=== PATIENT | female | born 1945 | race Caucasian/White ===

== ENCOUNTER 2019-11-11 02:04 | Inpatient (IN) ==
[2019-11-11] MEDS ORDERED: Nitroglycerin 0.4 MG TAB.SUBL SL PRN (02:22)
[2019-11-11] MEDS ORDERED: *HR* FentaNYL (PF) 100 MCG/2 ML VIAL IVP ONE (02:23)
[2019-11-11] MEDS ORDERED: *HR* Heparin 5,000 UNIT/ML VIAL IVP PRN ×2 (02:51)
[2019-11-11] MEDS ORDERED: *HR* Heparin 5,000 UNIT/ML VIAL IVP ONE (02:51)
[2019-11-11] MEDS ORDERED: *HR* Ticagrelor 90 MG TABLET PO ONE (02:51)
[2019-11-11] MEDS ORDERED: Ondansetron 4 MG/2 ML VIAL IVP ONE ×2 (02:55→02:56)
[2019-11-11] MEDS ORDERED: *HR* Heparin 5,000 UNIT/ML VIAL ONE (02:56)
[2019-11-11] MEDS ORDERED: Ondansetron 4 MG/2 ML VIAL ONE (02:56)
[2019-11-11] MEDS ORDERED: *HR* Ticagrelor 90 MG TABLET ONE (02:56)
[2019-11-11] MEDS ORDERED: 0.9 % Sodium Chloride 1,000 ML ONE (02:59)
[2019-11-11] MEDS ORDERED: Heparin 25,000UNIT/250ML 1/2NS 25,000 UNIT/250 ML IV.SOLN IVC SCH (03:00)
[2019-11-11 03:06] LABS: Basophils % 0.4 %; Eosinophils # 0.1 K/mcL (0.0-0.6); Eosinophils % 1.4 %; Hematocrit 43.9 % (35.3-44.9); Hemoglobin 14.6 g/dL (11.5-15.4); Immature Granulocytes % 0.3 % (0-4); Lymphocytes # 2.3 K/mcL (0.6-4.6); Lymphocytes % 28.5 %; Mean Corpuscular HGB Conc 33.3 g/dL (31.6-35.5); Mean Corpuscular Hemoglobin 31.6 pg (28.0-33.3); Mean Platelet Volume 10.8 fL (9.4-12.4); Monocytes # 0.7 K/mcL (0.0-1.3); Monocytes % 8.8 %; Neutrophils # 4.8 K/mcL (1.6-8.9); Platelet Count 255 K/mcL (140-400); Red Blood Count 4.62 M/mcL (3.82-4.97); Red Cell Distribution Width 12.4 % (11.5-14.5); Segmented Neutrophils % 60.6 %; White Blood Count 7.9 K/mcL (4.3-11.1)
[2019-11-11] MEDS ORDERED: ISOVUE-370 200 ML INFUS..BTL ONE (03:17)
[2019-11-11] MEDS ORDERED: 0.9 % Sodium Chloride 2,000 ML ONE (03:17)
[2019-11-11] MEDS ORDERED: *HR* Heparin 10,000 UNIT/10 ML VIAL ONE (03:17)
[2019-11-11] MEDS ORDERED: Nitroglycerin 1,000 MCG/10 ML VIAL IV ONE (03:17)
[2019-11-11] MEDS ORDERED: Heparin 1,000 UNITS/500 mL 500 ML ONE (03:17)
[2019-11-11] MEDS ORDERED: *HR* Midazolam HCl 2 MG/2 ML VIAL ONE (03:25)
[2019-11-11 03:26] LABS: BUN/Creatinine Ratio 20 (6-26); Blood Urea Nitrogen 14 mg/dL (8-23); Calcium 9.6 mg/dL (8.6-10.3); Carbon Dioxide 23 mEq/L (23-29); Chloride 107 mEq/L (98-107); Glucose 112 mg/dL (70-105); Heparin anti-factor XA UFH < 0.04 IU/mL (0.30-0.70); INR 1.2; Osmolality,Calculated 289 (280-300); Potassium 3.7 mEq/L (3.5-5.1); Prothrombin Time 13.1 Seconds (9.4-12.1); Sodium 139 mEq/L (136-145); eGFR For African Americans > 60 (> 60); eGFR For Non-African Americans > 60 (> 60)
[2019-11-11] MEDS ORDERED: *HR* FentaNYL (PF) 100 MCG/2 ML VIAL ONE (03:26)
[2019-11-11 03:29] LABS: Activated Partial Thrombo Time 32.5 Seconds (26.0-36.0)
[2019-11-11 03:31] LABS: Troponin I 0.77 ng/mL (< 0.04)
[2019-11-11 03:34] LABS: Adenovirus Not Detected (Not Detect); Coronavirus 229E Not Detected (Not Detect); Coronavirus HKU1 Not Detected (Not Detect); Coronavirus NL63 Not Detected (Not Detect); Coronavirus OC43 Not Detected (Not Detect); Human Metapneumovirus Not Detected (Not Detect); Human Rhinovirus/Enterovirus Not Detected (Not Detect); Influenza A Subtype 2009 H1 Not Detected (Not Detect); Influenza B Not Detected (Not Detect); Parainfluenza Virus 1 Not Detected (Not Detect); Parainfluenza Virus 2 Not Detected (Not Detect); Parainfluenza Virus 3 Not Detected (Not Detect); Parainfluenza Virus 4 Not Detected (Not Detect); SARS-CoV-2 Not Detected (Not Detect)
[2019-11-11 03:35] LABS: Bordetella Pertussis Not Detected (Not Detect); Chlamydophila pneumoniae Not Detected (Not Detect); Mycoplasma pneumoniae Not Detected (Not Detect); Respiratory Syncytial Virus Not Detected (Not Detect)
[2019-11-11] MEDS ORDERED: Perflutren Lipid Microsphere 1.3 ML in 0.9 % Sodium Chloride 8.7 ML IVP PRN (04:19)
[2019-11-11 06:32] LABS: Basophils % 0.2 %; Eosinophils # 0.1 K/mcL (0.0-0.6); Eosinophils % 0.4 %; Hematocrit 44.1 % (35.3-44.9); Hemoglobin 14.6 g/dL (11.5-15.4); Immature Granulocytes % 0.3 % (0-4); Lymphocytes # 2.1 K/mcL (0.6-4.6); Lymphocytes % 18.7 %; Mean Corpuscular HGB Conc 33.1 g/dL (31.6-35.5); Mean Corpuscular Hemoglobin 31.8 pg (28.0-33.3); Mean Corpuscular Volume 96.1 fL (83.0-100.0); Mean Platelet Volume 10.9 fL (9.4-12.4); Monocytes # 0.7 K/mcL (0.0-1.3); Monocytes % 5.9 %; Neutrophils # 8.4 K/mcL (1.6-8.9); Platelet Count 243 K/mcL (140-400); Red Blood Count 4.59 M/mcL (3.82-4.97); Red Cell Distribution Width 12.6 % (11.5-14.5); Segmented Neutrophils % 74.5 %; White Blood Count 11.2 K/mcL (4.3-11.1)
[2019-11-11 06:47] LABS: BUN/Creatinine Ratio 18 (6-26); Blood Urea Nitrogen 12 mg/dL (8-23); Calcium 9.8 mg/dL (8.6-10.3); Carbon Dioxide 27 mEq/L (23-29); Chloride 104 mEq/L (98-107); Glucose 135 mg/dL (70-105); Osmolality,Calculated 288 (280-300); Potassium 3.7 mEq/L (3.5-5.1); Sodium 138 mEq/L (136-145); eGFR For African Americans > 60 (> 60); eGFR For Non-African Americans > 60 (> 60)
[2019-11-11] MEDS: Acetaminophen 325 MG TABLET PO PRN ×2 (08:48→20:34)
[2019-11-11] MEDS: Aspirin 81 MG TAB.CHEW PO SCH (08:48)
[2019-11-11 08:52] LABS: Estimated Average Glucose 114 mg/dl
[2019-11-11] MEDS: Heparin 25,000UNIT/250ML 1/2NS 25,000 UNIT/250 ML IV.SOLN IVC SCH (10:27)
[2019-11-11] MEDS: Metoprolol XL (24 HR) Succ 25 MG TAB.ER.24H PO SCH (14:39)
[2019-11-12] MEDS ORDERED: Perflutren Lipid Microsphere 1.3 ML in 0.9 % Sodium Chloride 8.7 ML IVP PRN (08:22)
[2019-11-12] MEDS: Heparin 25,000UNIT/250ML 1/2NS 25,000 UNIT/250 ML IV.SOLN IVC SCH (08:22)
[2019-11-12] MEDS: Metoprolol XL (24 HR) Succ 25 MG TAB.ER.24H PO SCH (08:22)
[2019-11-12] MEDS: Aspirin 81 MG TAB.CHEW PO SCH (08:22)
[2019-11-12] MEDS ORDERED: Acetaminophen 325 MG TABLET PO SCH ×2 (09:00→18:00)
[2019-11-12] MEDS: Isosorbide MONOnitrate (24 HR) 30 MG TAB.ER.24H PO SCH (09:27)
[2019-11-12 11:20] LABS: Basophils % 0.3 %; Eosinophils # 0.2 K/mcL (0.0-0.6); Eosinophils % 1.7 %; Hematocrit 45.4 % (35.3-44.9); Hemoglobin 15.3 g/dL (11.5-15.4); Immature Granulocytes % 0.3 % (0-4); Lymphocytes # 2.9 K/mcL (0.6-4.6); Lymphocytes % 26.6 %; Mean Corpuscular HGB Conc 33.7 g/dL (31.6-35.5); Mean Corpuscular Hemoglobin 32.6 pg (28.0-33.3); Mean Corpuscular Volume 96.6 fL (83.0-100.0); Mean Platelet Volume 11.4 fL (9.4-12.4); Monocytes # 1.1 K/mcL (0.0-1.3); Monocytes % 10.6 %; Neutrophils # 6.5 K/mcL (1.6-8.9); Platelet Count 231 K/mcL (140-400); Red Cell Distribution Width 12.6 % (11.5-14.5); Segmented Neutrophils % 60.5 %; White Blood Count 10.8 K/mcL (4.3-11.1)
[2019-11-12 11:56] LABS: BUN/Creatinine Ratio 17 (6-26); Blood Urea Nitrogen 13 mg/dL (8-23); Calcium 9.5 mg/dL (8.6-10.3); Carbon Dioxide 24 mEq/L (23-29); Chloride 105 mEq/L (98-107); Chol/HDL Ratio 5.4 (0-4.9); Cholesterol 239 mg/dL (< 200); Glucose 144 mg/dL (70-105); HDL Cholesterol 44 mg/dL (40-59); LDL Cholesterol,Calculated 146 mg/dL (< 100); Osmolality,Calculated 293 (280-300); Potassium 3.5 mEq/L (3.5-5.1); Sodium 140 mEq/L (136-145); Triglycerides 245 mg/dL (< 150); eGFR For African Americans > 60 (> 60); eGFR For Non-African Americans > 60 (> 60)
[2019-11-13] MEDS ORDERED: carvediloL 6.25 MG TABLET PO SCH (08:18)
[2019-11-13] MEDS ORDERED: Acetaminophen 325 MG TABLET PO SCH (09:00)
[2019-11-13] MEDS ORDERED: Menthol 9.1 MG LOZENGE PO PRN ×2 (09:42→10:13)
[2019-11-13] MEDS: Aspirin 81 MG TAB.CHEW PO SCH (10:08)
[2019-11-13] MEDS: Isosorbide MONOnitrate (24 HR) 30 MG TAB.ER.24H PO SCH (10:08)
[2019-11-13] MEDS ORDERED: Perflutren Lipid Microsphere 1.3 ML in 0.9 % Sodium Chloride 8.7 ML IVP PRN (10:13)
[2019-11-13] MEDS ORDERED: Nitroglycerin 0.4 MG TAB.SUBL SL PRN (10:13)
[2019-11-13] MEDS: Lactobacillus 1 EACH CAP.SPRINK PO SCH (12:29)
[2019-11-13] MEDS: Multivit/Ca/Min/Fe/FA 1 TAB TABLET PO SCH (12:29)
[2019-11-13] MEDS: Cholecalciferol (D-3) 1,000 UNIT (25MCG) TABLET PO SCH (12:36)
[2019-11-13] MEDS: Heparin 25,000UNIT/250ML 1/2NS 25,000 UNIT/250 ML IV.SOLN IVC SCH ×2 (12:38→21:43)
[2019-11-13] MEDS: Acetaminophen 325 MG TABLET PO SCH ×2 (16:04→20:25)
[2019-11-13] MEDS: carvediloL 6.25 MG TABLET PO SCH (16:05)
[2019-11-13] MEDS: Budesonide/Formoterol 160/4.5 1 PUFF INH IH SCH (20:00)
[2019-11-14 01:15] LABS: Basophils % 0.3 %; Eosinophils # 0.3 K/mcL (0.0-0.6); Eosinophils % 3.1 %; Hematocrit 43.1 % (35.3-44.9); Hemoglobin 14.1 g/dL (11.5-15.4); Immature Granulocytes % 0.2 % (0-4); Lymphocytes # 3.5 K/mcL (0.6-4.6); Lymphocytes % 37.1 %; Mean Corpuscular HGB Conc 32.7 g/dL (31.6-35.5); Mean Corpuscular Hemoglobin 31.5 pg (28.0-33.3); Mean Corpuscular Volume 96.2 fL (83.0-100.0); Mean Platelet Volume 11.3 fL (9.4-12.4); Monocytes # 1.1 K/mcL (0.0-1.3); Monocytes % 11.9 %; Neutrophils # 4.5 K/mcL (1.6-8.9); Platelet Count 214 K/mcL (140-400); Red Blood Count 4.48 M/mcL (3.82-4.97); Red Cell Distribution Width 12.8 % (11.5-14.5); Segmented Neutrophils % 47.4 %; White Blood Count 9.4 K/mcL (4.3-11.1)
[2019-11-14 01:34] LABS: BUN/Creatinine Ratio 25 (6-26); Blood Urea Nitrogen 19 mg/dL (8-23); Calcium 9.6 mg/dL (8.6-10.3); Carbon Dioxide 22 mEq/L (23-29); Chloride 107 mEq/L (98-107); Glucose 121 mg/dL (70-105); Osmolality,Calculated 292 (280-300); Sodium 139 mEq/L (136-145); eGFR For African Americans > 60 (> 60); eGFR For Non-African Americans > 60 (> 60)
[2019-11-14] MEDS: Budesonide/Formoterol 160/4.5 1 PUFF INH IH SCH ×2 (07:40→20:58)
[2019-11-14] MEDS: Heparin 25,000UNIT/250ML 1/2NS 25,000 UNIT/250 ML IV.SOLN IVC SCH (08:06)
[2019-11-14] MEDS: Multivit/Ca/Min/Fe/FA 1 TAB TABLET PO SCH (08:08)
[2019-11-14] MEDS: Cholecalciferol (D-3) 1,000 UNIT (25MCG) TABLET PO SCH (08:08)
[2019-11-14] MEDS: Lactobacillus 1 EACH CAP.SPRINK PO SCH (08:09)
[2019-11-14] MEDS: Acetaminophen 325 MG TABLET PO SCH ×3 (08:09→20:26)
[2019-11-14] MEDS: Isosorbide MONOnitrate (24 HR) 30 MG TAB.ER.24H PO SCH (08:09)
[2019-11-14] MEDS: BuPROPion XL (24 HR) 150 MG TABLET PO SCH (08:09)
[2019-11-14] MEDS: Aspirin 81 MG TAB.CHEW PO SCH (08:09)
[2019-11-14] MEDS: carvediloL 6.25 MG TABLET PO SCH ×2 (08:10→16:46)
[2019-11-15] MEDS: carvediloL 6.25 MG TABLET PO SCH ×2 (07:45→15:13)
[2019-11-15] MEDS: Lactobacillus 1 EACH CAP.SPRINK PO SCH (07:46)
[2019-11-15] MEDS: Acetaminophen 325 MG TABLET PO SCH ×3 (07:46→21:02)
[2019-11-15] MEDS: BuPROPion XL (24 HR) 150 MG TABLET PO SCH (07:46)
[2019-11-15] MEDS: Isosorbide MONOnitrate (24 HR) 30 MG TAB.ER.24H PO SCH (07:46)
[2019-11-15] MEDS: Multivit/Ca/Min/Fe/FA 1 TAB TABLET PO SCH (07:46)
[2019-11-15] MEDS: Aspirin 81 MG TAB.CHEW PO SCH (07:48)
[2019-11-15] MEDS: Heparin 25,000UNIT/250ML 1/2NS 25,000 UNIT/250 ML IV.SOLN IVC SCH (07:48)
[2019-11-15] MEDS: Cholecalciferol (D-3) 1,000 UNIT (25MCG) TABLET PO SCH (07:48)
[2019-11-15] MEDS: Budesonide/Formoterol 160/4.5 1 PUFF INH IH SCH ×2 (10:15→20:19)
[2019-11-15] MEDS ORDERED: Chlorhexidine Rinse 15 ML MOUTHWASH MM SCH (21:00)
[2019-11-16] MEDS: Aspirin 81 MG TAB.CHEW PO SCH (07:15)
[2019-11-16] MEDS: Cholecalciferol (D-3) 1,000 UNIT (25MCG) TABLET PO SCH (07:15)
[2019-11-16] MEDS: Multivit/Ca/Min/Fe/FA 1 TAB TABLET PO SCH (07:15)
[2019-11-16] MEDS: Acetaminophen 325 MG TABLET PO SCH ×3 (07:15→21:28)
[2019-11-16] MEDS: Isosorbide MONOnitrate (24 HR) 30 MG TAB.ER.24H PO SCH (07:15)
[2019-11-16] MEDS: Lactobacillus 1 EACH CAP.SPRINK PO SCH (07:15)
[2019-11-16] MEDS: BuPROPion XL (24 HR) 150 MG TABLET PO SCH (07:15)
[2019-11-16] MEDS: carvediloL 6.25 MG TABLET PO SCH ×2 (07:16→15:09)
[2019-11-16] MEDS: Heparin 25,000UNIT/250ML 1/2NS 25,000 UNIT/250 ML IV.SOLN IVC SCH (07:16)
[2019-11-16] MEDS: Budesonide/Formoterol 160/4.5 1 PUFF INH IH SCH ×2 (07:30→19:59)
[2019-11-16 08:06] LABS: Basophils % 0.4 %; Eosinophils # 0.2 K/mcL (0.0-0.6); Eosinophils % 2.7 %; Hematocrit 43.9 % (35.3-44.9); Hemoglobin 14.3 g/dL (11.5-15.4); Immature Granulocytes % 0.2 % (0-4); Lymphocytes # 3.2 K/mcL (0.6-4.6); Lymphocytes % 38.1 %; Mean Corpuscular HGB Conc 32.6 g/dL (31.6-35.5); Mean Corpuscular Hemoglobin 31.5 pg (28.0-33.3); Mean Corpuscular Volume 96.7 fL (83.0-100.0); Mean Platelet Volume 11.9 fL (9.4-12.4); Monocytes # 0.8 K/mcL (0.0-1.3); Monocytes % 9.7 %; Neutrophils # 4.1 K/mcL (1.6-8.9); Platelet Count 231 K/mcL (140-400); Red Blood Count 4.54 M/mcL (3.82-4.97); Red Cell Distribution Width 12.9 % (11.5-14.5); Segmented Neutrophils % 48.9 %; White Blood Count 8.4 K/mcL (4.3-11.1)
[2019-11-16 08:26] LABS: BUN/Creatinine Ratio 18 (6-26); Blood Urea Nitrogen 12 mg/dL (8-23); Carbon Dioxide 25 mEq/L (23-29); Chloride 106 mEq/L (98-107); Glucose 118 mg/dL (70-105); Osmolality,Calculated 287 (280-300); Potassium 3.7 mEq/L (3.5-5.1); Sodium 138 mEq/L (136-145); eGFR For African Americans > 60 (> 60); eGFR For Non-African Americans > 60 (> 60)
[2019-11-16] MEDS: Chlorhexidine Rinse 15 ML MOUTHWASH MM SCH (21:28)
[2019-11-17 01:25] LABS: Basophils % 0.3 %; Eosinophils # 0.2 K/mcL (0.0-0.6); Eosinophils % 2.2 %; Hematocrit 43.9 % (35.3-44.9); Hemoglobin 14.3 g/dL (11.5-15.4); Immature Granulocytes % 0.3 % (0-4); Lymphocytes # 2.7 K/mcL (0.6-4.6); Lymphocytes % 36.6 %; Mean Corpuscular HGB Conc 32.6 g/dL (31.6-35.5); Mean Corpuscular Hemoglobin 31.8 pg (28.0-33.3); Mean Corpuscular Volume 97.8 fL (83.0-100.0); Monocytes # 0.8 K/mcL (0.0-1.3); Monocytes % 10.7 %; Neutrophils # 3.6 K/mcL (1.6-8.9); Platelet Count 216 K/mcL (140-400); Red Blood Count 4.49 M/mcL (3.82-4.97); Red Cell Distribution Width 12.8 % (11.5-14.5); Segmented Neutrophils % 49.9 %; White Blood Count 7.3 K/mcL (4.3-11.1)
[2019-11-17 01:54] LABS: BUN/Creatinine Ratio 16 (6-26); Blood Urea Nitrogen 13 mg/dL (8-23); Calcium 10.2 mg/dL (8.6-10.3); Carbon Dioxide 22 mEq/L (23-29); Chloride 106 mEq/L (98-107); Glucose 111 mg/dL (70-105); Osmolality,Calculated 289 (280-300); Potassium 4.6 mEq/L (3.5-5.1); Sodium 139 mEq/L (136-145); eGFR For African Americans > 60 (> 60); eGFR For Non-African Americans > 60 (> 60)
[2019-11-17] MEDS ORDERED: Norepinephrine 4 MG in 0.9 % Sodium Chloride 250 ML IVC PRN (02:00)
[2019-11-17] MEDS ORDERED: Dextrose 50 % in Water (Vial) 30 ML, Sodium Bicarbonate 20 MEQ, Lidocaine 1% 5 ML, Insu... TH ONE ×3 (02:00)
[2019-11-17] MEDS ORDERED: Insulin Human Regular 100 UNIT in 0.9 % Sodium Chloride 100 ML IV PRN (02:00)
[2019-11-17] MEDS ORDERED: Heparin 15,000 UNIT in 0.9 % Sodium Chloride 500 ML IV ONE (02:00)
[2019-11-17] MEDS ORDERED: Dextrose 50 % in Water (Vial) 30 ML, Sodium Bicarbonate 20 MEQ, Potassium Chloride 15 M... TH ONE (02:00)
[2019-11-17] MEDS ORDERED: CeFAZolin Syr 2,000MG/20 ML 2,000 MG/20 ML SYRINGE IVPB ONE (07:00)
[2019-11-17] MEDS: Heparin 25,000UNIT/250ML 1/2NS 25,000 UNIT/250 ML IV.SOLN IVC SCH (07:50)
[2019-11-17] MEDS ORDERED: *HR* Midazolam HCl 5 MG/5 ML VIAL IVP ONE (09:03)
[2019-11-17] MEDS ORDERED: *HR* Propofol 200 MG/20 ML VIAL IVP ONE (09:03)
[2019-11-17] MEDS ORDERED: *HR* FentaNYL (PF) 1,000 MCG/20 ML VIAL ONE (09:03)
[2019-11-17] MEDS ORDERED: Tranexamic Acid 1,000 MG/10 ML VIAL ONE (09:05)
[2019-11-17] MEDS ORDERED: Lidocaine 2% Syringe 100 MG/5 ML ONE (09:05)
[2019-11-17] MEDS ORDERED: *HR* Magnesium Sulfate 1 GM/2 ML VIAL ONE (09:06)
[2019-11-17] MEDS ORDERED: Famotidine 20 MG/2 ML VIAL ONE (09:06)
[2019-11-17] MEDS ORDERED: Dexamethasone 4 MG/ML VIAL ONE (09:06)
[2019-11-17] MEDS ORDERED: *HR* Rocuronium Bromide 50 MG/5 ML VIAL ONE ×2 (09:06→13:40)
[2019-11-17] MEDS ORDERED: *HR* PHENYLEPHRINE 1,000 MCG/10 ML SYRINGE IVP ONE (09:06)
[2019-11-17] MEDS: Isosorbide MONOnitrate (24 HR) 30 MG TAB.ER.24H PO SCH (10:04)
[2019-11-17] MEDS: Aspirin 81 MG TAB.CHEW PO SCH (10:04)
[2019-11-17] MEDS: Cholecalciferol (D-3) 1,000 UNIT (25MCG) TABLET PO SCH (10:04)
[2019-11-17] MEDS: Multivit/Ca/Min/Fe/FA 1 TAB TABLET PO SCH (10:04)
[2019-11-17] MEDS: Lactobacillus 1 EACH CAP.SPRINK PO SCH (10:04)
[2019-11-17] MEDS: Acetaminophen 325 MG TABLET PO SCH ×3 (10:04→20:40)
[2019-11-17] MEDS: carvediloL 6.25 MG TABLET PO SCH ×2 (10:05→19:34)
[2019-11-17] MEDS: Chlorhexidine Rinse 15 ML MOUTHWASH MM SCH ×2 (10:05→19:33)
[2019-11-17] MEDS: BuPROPion XL (24 HR) 150 MG TABLET PO SCH (10:05)
[2019-11-17] MEDS: Budesonide/Formoterol 160/4.5 1 PUFF INH IH SCH ×2 (10:13→19:56)
[2019-11-17 13:06] LABS: ABG Base Excess 0 mEq/L (-2 to 3); ABG Chloride 103 mEq/L (98-107); ABG Glucose 100 mg/dL (60-95); ABG HCO3 27 mEq/L (21-27); ABG Ionized Calcium 1.32 mmol/L (1.15-1.35); ABG Oxygen Saturation 100 % (95-98); ABG PCO2 50 mmHg (35-45); ABG PH 7.33 pH Units (7.32-7.45); ABG PO2 223 mmHg (85-104); ABG TCO2 28 mEq/L (20-26)
[2019-11-17] MEDS ORDERED: *HR* Phenylephrine 10 MG/ML VIAL IVC ONE (13:40)
[2019-11-17] MEDS ORDERED: Albumin Human 25% 25 GM/100 ML IV.SOLN IVPB ONE (13:40)
[2019-11-17] MEDS ORDERED: *HR* Magnesium Sulfate 2 GM/50 ML PIGGYBACK IVPB ONE (13:40)
[2019-11-17] MEDS ORDERED: Lidocaine 2% Syringe 100 MG/5 ML IVP ONE (13:40)
[2019-11-17] MEDS ORDERED: Heparin 1,000 UNITS/500 mL IV.SOLN IVC ONE (13:40)
[2019-11-17] MEDS ORDERED: Tranexamic Acid 1,000 MG/10 ML VIAL IR ONE (13:40)
[2019-11-17] MEDS ORDERED: D5% in Water 250 ML IV BAG IV ONE (13:40)
[2019-11-17] MEDS ORDERED: *HR* Heparin 10,000 UNIT/10 ML VIAL IR ONE (13:40)
[2019-11-17] MEDS ORDERED: Mannitol 25% vial 12.5 GM/50 ML VIAL IVPB ONE (13:40)
[2019-11-17] MEDS ORDERED: *HR* FentaNYL (PF) 250 MCG/5 ML VIAL ONE (14:01)
[2019-11-17 14:42] LABS: ABG Base Excess -2 mEq/L (-2 to 3); ABG Chloride 110 mEq/L (98-107); ABG Glucose 102 mg/dL (60-95); ABG HCO3 22 mEq/L (21-27); ABG Ionized Calcium 1.09 mmol/L (1.15-1.35); ABG Oxygen Saturation 100 % (95-98); ABG PCO2 37 mmHg (35-45); ABG PH 7.39 pH Units (7.32-7.45); ABG PO2 185 mmHg (85-104); ABG TCO2 23 mEq/L (20-26)
[2019-11-17 14:54] LABS: ABG Base Excess 0 mEq/L (-2 to 3); ABG Chloride 102 mEq/L (98-107); ABG Glucose 212 mg/dL (60-95); ABG HCO3 24 mEq/L (21-27); ABG Ionized Calcium 1.02 mmol/L (1.15-1.35); ABG Oxygen Saturation 100 % (95-98); ABG PCO2 34 mmHg (35-45); ABG PH 7.45 pH Units (7.32-7.45); ABG PO2 570 mmHg (85-104); ABG TCO2 25 mEq/L (20-26)
[2019-11-17] MEDS ORDERED: Calcium Gluconate 1,000 MG/10 ML VIAL ONE (15:21)
[2019-11-17 15:32] LABS: ABG Base Excess 5 mEq/L (-2 to 3); ABG Chloride 102 mEq/L (98-107); ABG Glucose 106 mg/dL (60-95); ABG HCO3 28 mEq/L (21-27); ABG Ionized Calcium 1.25 mmol/L (1.15-1.35); ABG Oxygen Saturation 100 % (95-98); ABG PCO2 35 mmHg (35-45); ABG PH 7.51 pH Units (7.32-7.45); ABG PO2 526 mmHg (85-104); ABG TCO2 29 mEq/L (20-26)
[2019-11-17] MEDS ORDERED: *HR* Dextrose 50 % in Water (Syg) 50 ML SYRINGE ONE (16:01)
[2019-11-17 16:03] LABS: ABG Base Excess 0 mEq/L (-2 to 3); ABG Chloride 104 mEq/L (98-107); ABG Glucose 55 mg/dL (60-95); ABG HCO3 24 mEq/L (21-27); ABG Ionized Calcium 1.27 mmol/L (1.15-1.35); ABG Oxygen Saturation 100 % (95-98); ABG PCO2 34 mmHg (35-45); ABG PH 7.46 pH Units (7.32-7.45); ABG PO2 266 mmHg (85-104); ABG TCO2 25 mEq/L (20-26)
[2019-11-17] MEDS ORDERED: Insulin Regular, Human 100 UNIT/ML IV PRN (16:28)
[2019-11-17] MEDS ORDERED: *HR* Dextrose 50 % in Water (Vial) 50 ML VIAL IVP PRN (16:28)
[2019-11-17] MEDS ORDERED: Naloxone 0.4 MG/ML INJ IVP PRN (16:28)
[2019-11-17] MEDS ORDERED: Potassium Chloride 40 MEQ/200 ML BAG IVPB PRN (16:28)
[2019-11-17] MEDS ORDERED: Ondansetron 4 MG/2 ML VIAL IVP PRN (16:28)
[2019-11-17 16:53] LABS: ABG Base Excess -1 mEq/L (-2 to 3); ABG HCO3 24 mEq/L (21-27); ABG Oxygen Saturation 89 % (95-98); ABG PCO2 40 mmHg (35-45); ABG PH 7.39 pH Units (7.32-7.45); ABG PO2 57 mmHg (85-104); ABG TCO2 26 mEq/L (20-26); Blood Gas VT 500 cc
[2019-11-17 17:05] LABS: Basophils % 0.2 %; Eosinophils % 0.8 %; Hematocrit 32.9 % (35.3-44.9); Immature Granulocytes % 0.5 % (0-4); Lymphocytes # 1.7 K/mcL (0.6-4.6); Lymphocytes % 9.3 %; Mean Corpuscular Hemoglobin 32.5 pg (28.0-33.3); Mean Corpuscular Volume 95.4 fL (83.0-100.0); Mean Platelet Volume 12.1 fL (9.4-12.4); Monocytes # 1.7 K/mcL (0.0-1.3); Monocytes % 9.3 %; Neutrophils # 14.5 K/mcL (1.6-8.9); Platelet Count 112 K/mcL (140-400); Red Blood Count 3.45 M/mcL (3.82-4.97); Red Cell Distribution Width 12.8 % (11.5-14.5); Segmented Neutrophils % 79.9 %
[2019-11-17 17:09] LABS: Eosinophils # 0.1 K/mcL (0.0-0.6); Hemoglobin 11.2 g/dL (11.5-15.4); White Blood Count 18.1 K/mcL (4.3-11.1)
[2019-11-17 17:15] LABS: INR 1.5; Prothrombin Time 17.5 Seconds (9.4-12.1)
[2019-11-17 17:18] LABS: Activated Partial Thrombo Time 29.7 Seconds (26.0-36.0)
[2019-11-17 17:25] LABS: BUN/Creatinine Ratio 18 (6-26); Blood Urea Nitrogen 12 mg/dL (8-23); Calcium 8.7 mg/dL (8.6-10.3); Carbon Dioxide 25 mEq/L (23-29); Chloride 107 mEq/L (98-107); Glucose 152 mg/dL (70-105); Magnesium 3.4 mg/dL (1.6-2.6); Osmolality,Calculated 289 (280-300); Potassium 3.7 mEq/L (3.5-5.1); Sodium 138 mEq/L (136-145); eGFR For African Americans > 60 (> 60); eGFR For Non-African Americans > 60 (> 60)
[2019-11-17] MEDS: *HR* OxyCODONE/APAP 5/325 TABLET PO PRN ×2 (17:35→23:26)
[2019-11-17] MEDS: 0.9 % Sodium Chloride 1,000 ML IVC SCH (17:35)
[2019-11-17] MEDS: Albumin Human 5% 12.5 GM/250 ML IV.SOLN IVPB PRN ×2 (19:00→19:35)
[2019-11-17] MEDS: Norepinephrine 4 MG/254 ML IV.SOLN IVC SCH (19:33)
[2019-11-17] MEDS: niCARdipine 20 MG/200 ML MLS IVC SCH ×2 (19:33→19:38)
[2019-11-17] MEDS: *HR* FentaNYL (PF) 100 MCG/2 ML VIAL IVP PRN ×3 (19:35→23:53)
[2019-11-17] MEDS: CeFAZolin 2 GM/120 ML BAG IVPB SCH (20:17)
[2019-11-17] MEDS: Insulin Human Regular 100 UNIT in 0.9 % Sodium Chloride 100 ML IVC SCH (20:22)
[2019-11-17 22:10] LABS: ABG Base Excess 2 mEq/L (-2 to 3); ABG HCO3 26 mEq/L (21-27); ABG Oxygen Saturation 93 % (95-98); ABG PCO2 38 mmHg (35-45); ABG PH 7.45 pH Units (7.32-7.45); ABG PO2 64 mmHg (85-104); ABG TCO2 27 mEq/L (20-26); Blood Gas Modality ASSIST CONTROL; Blood Gas VT 500 cc
[2019-11-17 23:43] LABS: ABG Base Excess 0 mEq/L (-2 to 3); ABG HCO3 25 mEq/L (21-27); ABG Oxygen Saturation 95 % (95-98); ABG PCO2 41 mmHg (35-45); ABG PO2 78 mmHg (85-104); ABG TCO2 26 mEq/L (20-26); Blood Gas Modality CPAP/PS
[2019-11-18] MEDS: niCARdipine 20 MG/200 ML MLS IVC SCH ×3 (00:01→19:53)
[2019-11-18] MEDS: *HR* FentaNYL (PF) 100 MCG/2 ML VIAL IVP PRN ×3 (01:03→05:36)
[2019-11-18] MEDS: CeFAZolin 2 GM/120 ML BAG IVPB SCH (04:25)
[2019-11-18] MEDS: *HR* OxyCODONE/APAP 5/325 TABLET PO PRN ×2 (04:25→21:31)
[2019-11-18] MEDS: 0.9 % Sodium Chloride 1,000 ML IVC SCH (04:28)
[2019-11-18 05:41] LABS: Basophils % 0.1 %; Hematocrit 35.3 % (35.3-44.9); Hemoglobin 11.8 g/dL (11.5-15.4); Immature Granulocytes % 0.6 % (0-4); Lymphocytes # 1.5 K/mcL (0.6-4.6); Lymphocytes % 6.7 %; Mean Corpuscular HGB Conc 33.4 g/dL (31.6-35.5); Mean Corpuscular Hemoglobin 32.2 pg (28.0-33.3); Mean Corpuscular Volume 96.2 fL (83.0-100.0); Monocytes # 2.7 K/mcL (0.0-1.3); Platelet Count 147 K/mcL (140-400); Red Blood Count 3.67 M/mcL (3.82-4.97); Segmented Neutrophils % 80.6 %; White Blood Count 22.4 K/mcL (4.3-11.1)
[2019-11-18 05:43] LABS: BUN/Creatinine Ratio 25 (6-26); Blood Urea Nitrogen 16 mg/dL (8-23); Calcium 8.8 mg/dL (8.6-10.3); Carbon Dioxide 24 mEq/L (23-29); Chloride 109 mEq/L (98-107); Glucose 104 mg/dL (70-105); Osmolality,Calculated 291 (280-300); Potassium 4.2 mEq/L (3.5-5.1); Sodium 140 mEq/L (136-145); eGFR For African Americans > 60 (> 60); eGFR For Non-African Americans > 60 (> 60)
[2019-11-18] MEDS: Budesonide/Formoterol 160/4.5 1 PUFF INH IH SCH ×2 (07:31→20:13)
[2019-11-18] MEDS ORDERED: Pantoprazole 40 MG VIAL IVP SCH (09:00)
[2019-11-18] MEDS ORDERED: Furosemide 20 MG/2 ML VIAL IVP ONE (09:16)
[2019-11-18] MEDS ORDERED: *HR* FentaNYL (PF) 100 MCG/2 ML VIAL IVP PRN ×2 (09:22→17:35)
[2019-11-18] MEDS: Chlorhexidine Rinse 15 ML MOUTHWASH MM SCH ×2 (09:45→21:18)
[2019-11-18] MEDS: Aspirin 81 MG TAB.CHEW PO SCH (09:46)
[2019-11-18] MEDS: Cholecalciferol (D-3) 1,000 UNIT (25MCG) TABLET PO SCH (09:46)
[2019-11-18] MEDS: Acetaminophen 325 MG TABLET PO SCH ×3 (09:46→21:15)
[2019-11-18] MEDS: carvediloL 6.25 MG TABLET PO SCH ×2 (09:46→17:35)
[2019-11-18] MEDS: BuPROPion XL (24 HR) 150 MG TABLET PO SCH (09:47)
[2019-11-18] MEDS: Lactobacillus 1 EACH CAP.SPRINK PO SCH (09:47)
[2019-11-18] MEDS: Multivit/Ca/Min/Fe/FA 1 TAB TABLET PO SCH (09:47)
[2019-11-18] MEDS ORDERED: Naloxone 0.4 MG/ML INJ IVP PRN (17:35)
[2019-11-18] MEDS ORDERED: Nitroglycerin 0.4 MG TAB.SUBL SL PRN (17:35)
[2019-11-18] MEDS ORDERED: Dextrose Gel 15 GM/37.5 ML TUBE PO PRN ×2 (17:35)
[2019-11-18] MEDS ORDERED: D5% in Water 1,000 ML IVC PRN (17:35)
[2019-11-18] MEDS ORDERED: *HR* Dextrose 50 % in Water (Vial) 50 ML VIAL IVP PRN (17:35)
[2019-11-18] MEDS: *HR* Heparin 5,000 UNIT/ML VIAL SQ SCH (18:45)
[2019-11-18] MEDS: Insulin LISPRO 300 UNITS/3 ML VIAL SQ SCH ×2 (19:50→20:59)
[2019-11-18] MEDS: Norepinephrine 4 MG/254 ML IV.SOLN IVC SCH (19:52)
[2019-11-18] MEDS: Insulin Human Regular 100 UNIT in 0.9 % Sodium Chloride 100 ML IVC SCH (19:52)
[2019-11-19 03:36] LABS: Basophils % 0.2 %; Hematocrit 31.7 % (35.3-44.9); Hemoglobin 10.3 g/dL (11.5-15.4); Immature Granulocytes % 0.4 % (0-4); Lymphocytes # 2.4 K/mcL (0.6-4.6); Lymphocytes % 12.6 %; Mean Corpuscular HGB Conc 32.5 g/dL (31.6-35.5); Mean Corpuscular Hemoglobin 32.3 pg (28.0-33.3); Mean Corpuscular Volume 99.4 fL (83.0-100.0); Mean Platelet Volume 12.8 fL (9.4-12.4); Monocytes # 2.6 K/mcL (0.0-1.3); Monocytes % 13.7 %; Neutrophils # 14.1 K/mcL (1.6-8.9); Platelet Count 115 K/mcL (140-400); Red Blood Count 3.19 M/mcL (3.82-4.97); Red Cell Distribution Width 13.5 % (11.5-14.5); Segmented Neutrophils % 73.1 %; White Blood Count 19.2 K/mcL (4.3-11.1)
[2019-11-19 03:58] LABS: BUN/Creatinine Ratio 32 (6-26); Blood Urea Nitrogen 23 mg/dL (8-23); Calcium 8.8 mg/dL (8.6-10.3); Carbon Dioxide 24 mEq/L (23-29); Chloride 106 mEq/L (98-107); Glucose 116 mg/dL (70-105); Osmolality,Calculated 291 (280-300); Potassium 3.8 mEq/L (3.5-5.1); Sodium 138 mEq/L (136-145); eGFR For African Americans > 60 (> 60); eGFR For Non-African Americans > 60 (> 60)
[2019-11-19] MEDS ORDERED: Albumin 25% 25gram/100mL 25 GM/100 ML IV.SOLN IVPB ONE (05:15)
[2019-11-19] MEDS ORDERED: Albumin Human 5% 12.5 GM/250 ML IV.SOLN IVPB ONE ×2 (05:20→06:08)
[2019-11-19] MEDS: *HR* Heparin 5,000 UNIT/ML VIAL SQ SCH ×2 (05:30→19:47)
[2019-11-19] MEDS: Ondansetron 4 MG/2 ML VIAL IVP PRN ×2 (05:31→19:48)
[2019-11-19] MEDS: *HR* OxyCODONE/APAP 5/325 TABLET PO PRN ×2 (06:07→19:49)
[2019-11-19] MEDS: Budesonide/Formoterol 160/4.5 1 PUFF INH IH SCH ×2 (07:19→20:48)
[2019-11-19] MEDS ORDERED: carvediloL 6.25 MG TABLET PO SCH (08:00)
[2019-11-19] MEDS: Insulin LISPRO 300 UNITS/3 ML VIAL SQ SCH ×4 (08:33→19:39)
[2019-11-19] MEDS: Chlorhexidine Rinse 15 ML MOUTHWASH MM SCH ×2 (08:33→19:47)
[2019-11-19] MEDS: Cholecalciferol (D-3) 1,000 UNIT (25MCG) TABLET PO SCH (08:34)
[2019-11-19] MEDS: Aspirin 81 MG TAB.CHEW PO SCH (08:34)
[2019-11-19] MEDS: BuPROPion XL (24 HR) 150 MG TABLET PO SCH (08:34)
[2019-11-19] MEDS: Lactobacillus 1 EACH CAP.SPRINK PO SCH (08:34)
[2019-11-19] MEDS: Multivit/Ca/Min/Fe/FA 1 TAB TABLET PO SCH (08:34)
[2019-11-19] MEDS: Acetaminophen 325 MG TABLET PO SCH ×3 (08:35→19:49)
[2019-11-19] MEDS ORDERED: Pantoprazole 40 MG VIAL IVP SCH (09:00)
[2019-11-19] MEDS: Menthol 9.1 MG LOZENGE PO PRN (20:58)
[2019-11-20] MEDS: *HR* OxyCODONE/APAP 5/325 TABLET PO PRN (04:08)
[2019-11-20 04:32] LABS: Basophils % 0.1 %; Eosinophils % 0.1 %; Platelet Count 101 K/mcL (140-400)
[2019-11-20 04:33] LABS: Hematocrit 27.7 % (35.3-44.9); Hemoglobin 8.7 g/dL (11.5-15.4); Immature Granulocytes % 0.7 % (0-4); Lymphocytes # 2.4 K/mcL (0.6-4.6); Lymphocytes % 15.6 %; Mean Corpuscular HGB Conc 31.4 g/dL (31.6-35.5); Mean Corpuscular Hemoglobin 31.8 pg (28.0-33.3); Mean Corpuscular Volume 101.1 fL (83.0-100.0); Mean Platelet Volume 13.6 fL (9.4-12.4); Monocytes % 13.4 %; Neutrophils # 10.6 K/mcL (1.6-8.9); Red Blood Count 2.74 M/mcL (3.82-4.97); Red Cell Distribution Width 13.5 % (11.5-14.5); Segmented Neutrophils % 70.1 %; White Blood Count 15.1 K/mcL (4.3-11.1)
[2019-11-20 04:56] LABS: BUN/Creatinine Ratio 38 (6-26); Blood Urea Nitrogen 21 mg/dL (8-23); Calcium 8.9 mg/dL (8.6-10.3); Carbon Dioxide 27 mEq/L (23-29); Chloride 104 mEq/L (98-107); Glucose 111 mg/dL (70-105); Osmolality,Calculated 288 (280-300); Potassium 3.7 mEq/L (3.5-5.1); Sodium 137 mEq/L (136-145); eGFR For African Americans > 60 (> 60); eGFR For Non-African Americans > 60 (> 60)
[2019-11-20] MEDS: *HR* Heparin 5,000 UNIT/ML VIAL SQ SCH ×2 (06:22→17:33)
[2019-11-20] MEDS: Budesonide/Formoterol 160/4.5 1 PUFF INH IH SCH ×2 (07:51→20:54)
[2019-11-20] MEDS: Aspirin 81 MG TAB.CHEW PO SCH (08:07)
[2019-11-20] MEDS: Acetaminophen 325 MG TABLET PO SCH ×3 (08:07→20:23)
[2019-11-20] MEDS: Multivit/Ca/Min/Fe/FA 1 TAB TABLET PO SCH (08:07)
[2019-11-20] MEDS: Lactobacillus 1 EACH CAP.SPRINK PO SCH (08:07)
[2019-11-20] MEDS: BuPROPion XL (24 HR) 150 MG TABLET PO SCH (08:07)
[2019-11-20] MEDS: Cholecalciferol (D-3) 1,000 UNIT (25MCG) TABLET PO SCH (08:07)
[2019-11-20] MEDS: Chlorhexidine Rinse 15 ML MOUTHWASH MM SCH ×2 (08:07→20:25)
[2019-11-20] MEDS: Insulin LISPRO 300 UNITS/3 ML VIAL SQ SCH ×4 (08:08→20:22)
[2019-11-21] MEDS: *HR* Heparin 5,000 UNIT/ML VIAL SQ SCH ×2 (05:14→17:42)
[2019-11-21] MEDS: Insulin LISPRO 300 UNITS/3 ML VIAL SQ SCH ×4 (07:39→21:23)
[2019-11-21] MEDS: Budesonide/Formoterol 160/4.5 1 PUFF INH IH SCH ×2 (07:53→20:04)
[2019-11-21] MEDS: Cholecalciferol (D-3) 1,000 UNIT (25MCG) TABLET PO SCH (07:53)
[2019-11-21] MEDS: Aspirin 81 MG TAB.CHEW PO SCH (07:53)
[2019-11-21] MEDS: BuPROPion XL (24 HR) 150 MG TABLET PO SCH (07:53)
[2019-11-21] MEDS: Acetaminophen 325 MG TABLET PO SCH ×3 (07:53→21:25)
[2019-11-21] MEDS: Menthol 9.1 MG LOZENGE PO PRN (07:54)
[2019-11-21] MEDS: Multivit/Ca/Min/Fe/FA 1 TAB TABLET PO SCH (07:54)
[2019-11-21] MEDS: Lactobacillus 1 EACH CAP.SPRINK PO SCH (07:54)
[2019-11-21] MEDS: Chlorhexidine Rinse 15 ML MOUTHWASH MM SCH ×2 (07:54→21:24)
[2019-11-21] MEDS: *HR* OxyCODONE/APAP 5/325 TABLET PO PRN (21:25)
[2019-11-22 01:29] LABS: BUN/Creatinine Ratio 32 (6-26); Blood Urea Nitrogen 20 mg/dL (8-23); Calcium 9.1 mg/dL (8.6-10.3); Carbon Dioxide 26 mEq/L (23-29); Chloride 104 mEq/L (98-107); Glucose 76 mg/dL (70-105); Osmolality,Calculated 287 (280-300); Potassium 3.7 mEq/L (3.5-5.1); Sodium 138 mEq/L (136-145); eGFR For African Americans > 60 (> 60); eGFR For Non-African Americans > 60 (> 60)
[2019-11-22 02:35] LABS: White Blood Count 11.2 K/mcL (4.3-11.1)
[2019-11-22 02:36] LABS: Hematocrit 28.1 % (35.3-44.9); Hemoglobin 8.9 g/dL (11.5-15.4); Mean Corpuscular HGB Conc 31.7 g/dL (31.6-35.5); Mean Corpuscular Hemoglobin 32.4 pg (28.0-33.3); Mean Corpuscular Volume 102.2 fL (83.0-100.0); Platelet Count 173 K/mcL (140-400); Red Blood Count 2.75 M/mcL (3.82-4.97); Red Cell Distribution Width 13.4 % (11.5-14.5)
[2019-11-22 02:37] LABS: Basophils % 0.3 %; Eosinophils # 0.3 K/mcL (0.0-0.6); Eosinophils % 2.5 %; Immature Granulocytes % 0.4 % (0-4); Lymphocytes # 2.3 K/mcL (0.6-4.6); Lymphocytes % 20.6 %; Mean Platelet Volume 13.7 fL (9.4-12.4); Monocytes # 1.4 K/mcL (0.0-1.3); Monocytes % 12.8 %; Neutrophils # 7.1 K/mcL (1.6-8.9); Segmented Neutrophils % 63.4 %
[2019-11-22] MEDS: *HR* Heparin 5,000 UNIT/ML VIAL SQ SCH ×2 (05:42→20:26)
[2019-11-22] MEDS: Insulin LISPRO 300 UNITS/3 ML VIAL SQ SCH ×4 (07:58→20:32)
[2019-11-22] MEDS: Budesonide/Formoterol 160/4.5 1 PUFF INH IH SCH ×2 (08:21→19:47)
[2019-11-22] MEDS: Multivit/Ca/Min/Fe/FA 1 TAB TABLET PO SCH (08:29)
[2019-11-22] MEDS: Lactobacillus 1 EACH CAP.SPRINK PO SCH (08:29)
[2019-11-22] MEDS: Cholecalciferol (D-3) 1,000 UNIT (25MCG) TABLET PO SCH (08:29)
[2019-11-22] MEDS: Aspirin 81 MG TAB.CHEW PO SCH (08:29)
[2019-11-22] MEDS: Acetaminophen 325 MG TABLET PO SCH ×3 (08:29→20:25)
[2019-11-22] MEDS: BuPROPion XL (24 HR) 150 MG TABLET PO SCH (08:29)
[2019-11-22] MEDS: Chlorhexidine Rinse 15 ML MOUTHWASH MM SCH ×2 (08:33→20:26)
[2019-11-22] MEDS: Furosemide 20 MG/2 ML VIAL IVP SCH (14:49)
[2019-11-23] MEDS: *HR* Heparin 5,000 UNIT/ML VIAL SQ SCH ×2 (06:41→18:48)
[2019-11-23 07:19] LABS: Basophils % 0.2 %; Platelet Count 254 K/mcL (140-400); Red Cell Distribution Width 13.5 % (11.5-14.5)
[2019-11-23 07:21] LABS: Eosinophils # 0.3 K/mcL (0.0-0.6); Eosinophils % 2.6 %; Hematocrit 30.9 % (35.3-44.9); Hemoglobin 9.6 g/dL (11.5-15.4); Immature Granulocytes % 0.8 % (0-4); Immature Platelets 13.5 % (1.1-6.1); Lymphocytes # 1.7 K/mcL (0.6-4.6); Lymphocytes % 13.9 %; Mean Corpuscular HGB Conc 31.1 g/dL (31.6-35.5); Mean Corpuscular Hemoglobin 31.6 pg (28.0-33.3); Mean Corpuscular Volume 101.6 fL (83.0-100.0); Mean Platelet Volume 13.2 fL (9.4-12.4); Monocytes # 1.4 K/mcL (0.0-1.3); Monocytes % 11.2 %; Neutrophils # 8.6 K/mcL (1.6-8.9); Nucleated Red Blood Cells 0.2 /100 WBC (0); Red Blood Count 3.04 M/mcL (3.82-4.97); Segmented Neutrophils % 71.3 %; White Blood Count 12.1 K/mcL (4.3-11.1)
[2019-11-23 07:24] LABS: BUN/Creatinine Ratio 29 (6-26); Blood Urea Nitrogen 20 mg/dL (8-23); Calcium 9.5 mg/dL (8.6-10.3); Carbon Dioxide 26 mEq/L (23-29); Chloride 103 mEq/L (98-107); Glucose 97 mg/dL (70-105); Osmolality,Calculated 289 (280-300); Potassium 3.8 mEq/L (3.5-5.1); Sodium 138 mEq/L (136-145); eGFR For African Americans > 60 (> 60); eGFR For Non-African Americans > 60 (> 60)
[2019-11-23] MEDS: Insulin LISPRO 300 UNITS/3 ML VIAL SQ SCH ×4 (07:43→19:55)
[2019-11-23] MEDS: Budesonide/Formoterol 160/4.5 1 PUFF INH IH SCH ×2 (07:53→20:23)
[2019-11-23] MEDS: Multivit/Ca/Min/Fe/FA 1 TAB TABLET PO SCH (07:59)
[2019-11-23] MEDS: Acetaminophen 325 MG TABLET PO SCH (07:59)
[2019-11-23] MEDS: Chlorhexidine Rinse 15 ML MOUTHWASH MM SCH ×3 (07:59→19:59)
[2019-11-23] MEDS: Aspirin 81 MG TAB.CHEW PO SCH (07:59)
[2019-11-23] MEDS: BuPROPion XL (24 HR) 150 MG TABLET PO SCH (08:00)
[2019-11-23] MEDS: Furosemide 20 MG/2 ML VIAL IVP SCH (08:00)
[2019-11-23] MEDS: Cholecalciferol (D-3) 1,000 UNIT (25MCG) TABLET PO SCH (08:00)
[2019-11-23] MEDS: Lactobacillus 1 EACH CAP.SPRINK PO SCH (08:00)
[2019-11-23] MEDS: Ondansetron 4 MG/2 ML VIAL IVP PRN (20:01)
[2019-11-24] MEDS: *HR* Heparin 5,000 UNIT/ML VIAL SQ SCH ×2 (06:29→16:43)
[2019-11-24] MEDS: Budesonide/Formoterol 160/4.5 1 PUFF INH IH SCH ×2 (07:54→20:09)
[2019-11-24] MEDS: Aspirin 81 MG TAB.CHEW PO SCH (08:39)
[2019-11-24] MEDS: Multivit/Ca/Min/Fe/FA 1 TAB TABLET PO SCH (08:39)
[2019-11-24] MEDS: Cholecalciferol (D-3) 1,000 UNIT (25MCG) TABLET PO SCH (08:39)
[2019-11-24] MEDS: Chlorhexidine Rinse 15 ML MOUTHWASH MM SCH ×2 (08:39→20:27)
[2019-11-24] MEDS: BuPROPion XL (24 HR) 150 MG TABLET PO SCH (08:39)
[2019-11-24] MEDS: Lactobacillus 1 EACH CAP.SPRINK PO SCH (08:39)
[2019-11-24] MEDS: Furosemide 20 MG/2 ML VIAL IVP SCH (08:39)
[2019-11-24] MEDS: Insulin LISPRO 300 UNITS/3 ML VIAL SQ SCH ×4 (08:49→20:29)
[2019-11-25] MEDS: *HR* Heparin 5,000 UNIT/ML VIAL SQ SCH ×2 (05:20→17:00)
[2019-11-25] MEDS: Budesonide/Formoterol 160/4.5 1 PUFF INH IH SCH ×2 (07:42→20:52)
[2019-11-25] MEDS: Multivit/Ca/Min/Fe/FA 1 TAB TABLET PO SCH (08:12)
[2019-11-25] MEDS: Cholecalciferol (D-3) 1,000 UNIT (25MCG) TABLET PO SCH (08:12)
[2019-11-25] MEDS: Lactobacillus 1 EACH CAP.SPRINK PO SCH (08:12)
[2019-11-25] MEDS: BuPROPion XL (24 HR) 150 MG TABLET PO SCH (08:12)
[2019-11-25] MEDS: Chlorhexidine Rinse 15 ML MOUTHWASH MM SCH ×2 (08:14→23:07)
[2019-11-25] MEDS: Furosemide 20 MG/2 ML VIAL IVP SCH (08:15)
[2019-11-25] MEDS: Aspirin 81 MG TAB.CHEW PO SCH (08:15)
[2019-11-25] MEDS: Insulin LISPRO 300 UNITS/3 ML VIAL SQ SCH ×4 (08:15→23:13)
[2019-11-26] MEDS: *HR* Heparin 5,000 UNIT/ML VIAL SQ SCH ×2 (06:33→20:39)
[2019-11-26] MEDS: Multivit/Ca/Min/Fe/FA 1 TAB TABLET PO SCH (07:55)
[2019-11-26] MEDS: Furosemide 20 MG/2 ML VIAL IVP SCH (07:56)
[2019-11-26] MEDS: Aspirin 81 MG TAB.CHEW PO SCH (07:56)
[2019-11-26] MEDS: Cholecalciferol (D-3) 1,000 UNIT (25MCG) TABLET PO SCH (07:56)
[2019-11-26] MEDS: BuPROPion XL (24 HR) 150 MG TABLET PO SCH (07:56)
[2019-11-26] MEDS: Lactobacillus 1 EACH CAP.SPRINK PO SCH (07:56)
[2019-11-26] MEDS: Insulin LISPRO 300 UNITS/3 ML VIAL SQ SCH ×4 (07:57→20:41)
[2019-11-26] MEDS: Chlorhexidine Rinse 15 ML MOUTHWASH MM SCH ×2 (07:57→20:39)
[2019-11-26] MEDS: Budesonide/Formoterol 160/4.5 1 PUFF INH IH SCH ×2 (08:01→20:52)
[2019-11-27] MEDS: *HR* Heparin 5,000 UNIT/ML VIAL SQ SCH ×2 (06:23→18:17)
[2019-11-27] MEDS: Budesonide/Formoterol 160/4.5 1 PUFF INH IH SCH ×2 (07:46→20:18)
[2019-11-27] MEDS: BuPROPion XL (24 HR) 150 MG TABLET PO SCH (08:26)
[2019-11-27] MEDS: Cholecalciferol (D-3) 1,000 UNIT (25MCG) TABLET PO SCH (08:26)
[2019-11-27] MEDS: Aspirin 81 MG TAB.CHEW PO SCH (08:26)
[2019-11-27] MEDS: Lactobacillus 1 EACH CAP.SPRINK PO SCH (08:27)
[2019-11-27] MEDS: Multivit/Ca/Min/Fe/FA 1 TAB TABLET PO SCH (08:27)
[2019-11-27] MEDS: Chlorhexidine Rinse 15 ML MOUTHWASH MM SCH ×2 (08:27→20:58)
[2019-11-27] MEDS: Furosemide 20 MG/2 ML VIAL IVP SCH (08:27)
[2019-11-27] MEDS: Insulin LISPRO 300 UNITS/3 ML VIAL SQ SCH ×4 (08:28→20:58)
[2019-11-28] MEDS: *HR* Heparin 5,000 UNIT/ML VIAL SQ SCH (06:20)
[2019-11-28 07:20] VITALS: BP 102/75
[2019-11-28] MEDS: Budesonide/Formoterol 160/4.5 1 PUFF INH IH SCH (07:54)
[2019-11-28] MEDS: BuPROPion XL (24 HR) 150 MG TABLET PO SCH (08:55)
[2019-11-28] MEDS: Multivit/Ca/Min/Fe/FA 1 TAB TABLET PO SCH (08:56)
[2019-11-28] MEDS: Lactobacillus 1 EACH CAP.SPRINK PO SCH (08:56)
[2019-11-28] MEDS: Furosemide 20 MG/2 ML VIAL IVP SCH (08:56)
[2019-11-28] MEDS: Cholecalciferol (D-3) 1,000 UNIT (25MCG) TABLET PO SCH (08:56)
[2019-11-28] MEDS: Aspirin 81 MG TAB.CHEW PO SCH (08:56)
[2019-11-28] MEDS ORDERED: FLU Vac QV 20-21 (6Month+)/PF 0.5 ML SYRINGE IM ONE (09:01)
[2019-11-28] MEDS: Insulin LISPRO 300 UNITS/3 ML VIAL SQ SCH (10:28)
[2019-11-28] MEDS: Chlorhexidine Rinse 15 ML MOUTHWASH MM SCH (10:28)
== END 2019-11-28 12:02 | disposition home health service (06) | DRG 232 ==
LOC: EMEROOARM 02:04 → ICNU 03:12 → 2ANU 11-13 11:54 → ICNU 11-17 12:21 → 2NNU 11-19 15:43
PROVIDERS: ADMIT Internal Medicine; ATTEND Internal Medicine